=== PATIENT | female | born 1985 | race African-American/Black ===

== ENCOUNTER 2021-01-19 00:09 | Emergency (ER) | payer BC ==
[2021-01-19] MEDS ORDERED: diphenhydrAMINE 50 MG/ML VIAL ONE (00:39)
[2021-01-19] MEDS ORDERED: Metoclopramide HCl 10 MG/2 ML VIAL ONE (00:39)
[2021-01-19 00:41] LABS: Hemoglobin 13.2 g/dL (12.0-16.0); Mean Corpuscular HGB CONC 31.9 g/dL (32.0-36.0); Mean Corpuscular Hemoglobin 28.3 pg (27.0-31.0); Mean Corpuscular Volume 88.6 fL (78.0-98.0); Mean Platelet Volume 7.5 fL (7.4-10.4); Platelet Count 302 thou/uL (130-400); RBC Distribution Width 11.7 % (11.5-14.5); Red Blood Cell (RBC) Count 4.66 mill/uL (4.20-5.40); White Blood Cell (WBC) Count 8.2 thou/uL (4.8-10.8)
[2021-01-19 00:44] LABS: PTT 30.3 sec (22.9-36.1); Prothrombin Time 12.9 sec (12.0-14.7)
[2021-01-19 00:58] LABS: ALT (SGPT) 16 U/L (8-55); AST (SGOT) 15 U/L (5-34); Alkaline Phosphatase 100 U/L (40-110); Anion Gap 11 mmol/L (10-20); BUN (Urea Nitrogen) 11 mg/dL (7.0-18.7); Bilirubin, Total 0.4 mg/dL (0.2-1.2); Calc. Creatinine Clearance 0 mL/min (70-130); Carbon Dioxide 26 mmol/L (22-29); Chloride 105 mmol/L (98-107); Globulin 3.7 g/dL (2.4-3.5); Glucose 100 mg/dL (70-105); Potassium 3.8 mmol/L (3.5-5.1); Protein, Total 7.7 g/dL (6.0-8.3); Sodium 138 mmol/L (136-145)
[2021-01-19 01:09] LABS: Eosinophils 1 % (0-10); Lymphocytes 68 % (21-51); MDiff Complete? YES; Monocytes 1 % (0-10); Neutrophil 28 % (42-75); Platelet Morphology Comment Appears Adequate
[2021-01-19] MEDS ORDERED: Iopamidol-370 76% 500 ML 1 ML ONE (11:17)
== END 2021-01-19 02:42 | disposition home or self-care (01) ==
LOC: ERS 00:09
DX: G43.109 Migraine with aura, not intractable, without status migrainosus (principal); R20.2 Paresthesia of skin
CPT/HCPCS: 36416; 70450; 70496; 70498; 71045; 80053; 84484; 85025; 85610; 85730; 93005; 96365; 96366; 96375; J1200; J2765; Q9967